=== PATIENT | female | born 1960 | race Two or more races ===

== ENCOUNTER 2020-02-15 13:57 | Inpatient (IN) | payer BC, OTHER ==
[~2020-02-15] VITALS: Ht 162.6 cm; Wt 97.3 kg
[2020-02-15 15:52] LABS: Basophils # (auto) 0.1 10 ^3/uL (0-0.2); Eosinophils # (auto) 0.1 10 ^3/uL (0-0.8); Eosinophils % (auto) 1.4 % (0.0-7.0); Hematocrit 44.5 % (36.0-46.0); Hemoglobin 14.5 g/dL (12.2-16.2); Lymphocytes # (auto) 1.1 10 ^3/uL (0.4-5.4); Lymphocytes % (auto) 14.1 % (10.0-50.0); Mean Corpuscular Hemoglobin 30.4 pg (28.0-32.0); Mean Corpuscular Hgb Conc. 32.7 g/dL (32.0-36.0); Mean Corpuscular Volume 92.8 fL (80.0-100.0); Monocytes # (auto) 0.4 10 ^3/uL (0-1.3); Monocytes % (auto) 5.6 % (0.0-12.0); Neutrophils # (auto) 6.2 10 ^3/uL (1.6-8.6); Neutrophils % (auto) 77.9 % (37.0-80.0); Nucleated Red Blood Cells % 0.1 %; Platelet Count (auto) 188 10^3/uL (140-450); Red Blood Cells 4.79 10^6/uL (4.0-5.20); Red Cell Distribution Width 14.5 % (11.8-14.3)
[2020-02-15 16:09] LABS: Albumin 3.8 g/dL (3.4-5.0); Anion Gap 10 (5-15); Blood Urea Nitrogen 24 mg/dL (7-18); Calcium 8.6 mg/dL (8.5-10.1); Carbon Dioxide 22 mmol/L (21-32); Chloride 108 mmol/L (98-107); Glucose 121 mg/dL (74-106); Magnesium 2.5 mg/dL (1.6-2.6); Potassium 3.3 mmol/L (3.5-5.1); Sodium 140 mmol/L (136-145)
[2020-02-15 16:15] LABS: Alanine Aminotransferase 39 U/L (13-56); Alkaline Phosphatase 91 U/L (45-117); Aspartate Aminotransferase 25 U/L (15-37); BUN/Creatinine Ratio 29.3; Bilirubin, Total 0.3 mg/dL (0.2-1.0); GFR African American 91 mL/min; GFR Non-African American 75 mL/min; INR 0.97 (0.9-1.15); Partial Thromboplastin Time 25.6 sec (23.0-31.2); Total Protein 6.8 g/dL (6.4-8.2)
[2020-02-15] MEDS ORDERED: NITROGLYCERIN 0.4 MG SL TAB SL PRN (17:15)
[2020-02-15] MEDS ORDERED: traMADol HCL 50 MG TAB PO PRN (17:15)
[2020-02-15] MEDS ORDERED: PROMETHAZINE HCL 25 MG/ML 1ML IV PRN (17:15)
[2020-02-15] MEDS ORDERED: MORPHINE SULF INJ 2 MG/ML SYRINGE 1ML IV PRN ×2 (17:15)
[2020-02-15] MEDS ORDERED: DEXTROSE (50%) 50ML SYRG IV PRN (17:15)
[2020-02-15] MEDS ORDERED: CLOPIDOGREL BISULFATE 75 MG TAB PO ONE (17:15)
[2020-02-15] MEDS ORDERED: TEMAZEPAM 15 MG CAP PO PRN (17:15)
[2020-02-15] MEDS ORDERED: ASPirin 81 mg TAB PO ONE (17:15)
[2020-02-15] MEDS ORDERED: POTASSIUM CHL 20 Meq TABLET PO ONE (17:15)
[2020-02-15] MEDS: SODIUM CHLORIDE 0.9% 1,000 ML IV SCH (18:09)
[2020-02-15] MEDS: ENOXAPARIN SOD 40 MG/0.4 ML SYRINGE SC SCH (19:10)
[2020-02-15] MEDS: ATORVASTATIN 20 MG TAB PO SCH (19:11)
[2020-02-15 20:00] VITALS: BP 102/59
[2020-02-15 20:02] VITALS: BP 102/59
[2020-02-15] MEDS: FAMOTIDINE 20 MG TAB PO SCH (21:24)
[2020-02-15] MEDS: METOPROLOL TARTRATE 25 MG TAB PO SCH ×2 (21:25→21:26)
[2020-02-15] MEDS: ACCU-CHEK COMFORT CURVE STRIP VI SCH (21:25)
[2020-02-15 23:34] LABS: CRP High Sensitivity 0.28 mg/dL (< 0.3)
[2020-02-16] MEDS ORDERED: ALBUAER3 IN (01:24)
[2020-02-16 05:30] VITALS: BP 91/44
[2020-02-16] MEDS: SODIUM CHLORIDE 0.9% 1,000 ML IV SCH ×2 (05:36→19:55)
[2020-02-16] MEDS: ACCU-CHEK COMFORT CURVE STRIP VI SCH ×4 (06:48→21:58)
[2020-02-16 07:52] LABS: Cholesterol 152 mg/dL (< 200); HDL Cholesterol 67 mg/dL (40-59); LDL Cholesterol 79 mg/dL (< 100); Triglycerides 49 mg/dL (< 150)
[2020-02-16] MEDS: FAMOTIDINE 20 MG TAB PO SCH ×2 (09:04→22:15)
[2020-02-16] MEDS: CLOPIDOGREL BISULFATE 75 MG TAB PO SCH (09:04)
[2020-02-16] MEDS: NITROGLYCERIN 0.2MG/HR TOPICAL PATCH TD SCH (09:05)
[2020-02-16] MEDS: ENOXAPARIN SOD 40 MG/0.4 ML SYRINGE SC SCH (09:05)
[2020-02-16] MEDS: METOPROLOL TARTRATE 25 MG TAB PO SCH ×2 (09:09→22:00)
[2020-02-16] MEDS: ACETAMINOPHEN 500 MG TAB PO PRN (12:57)
[2020-02-16] MEDS ORDERED: methylPREDNISolone SOD SUCC 125 MG/2 ML VL IV ONE (13:15)
[2020-02-16] MEDS: diphenhdrAMINE HCL 50 MG/1 ML VL IV SCH ×2 (13:31→18:19)
[2020-02-16 17:00] VITALS: BP 127/83
[2020-02-16] MEDS: methylPREDNISolone SOD SUCC 40 MG/ML VL IV SCH (18:19)
[2020-02-16 19:28] LABS: Alcohol, Urine < 3.0 mg/dL (0-10); Amphetamine Screen, Urine NEGATIVE (NEGATIVE); Barbiturate Scree,Urine NEGATIVE (NEGATIVE); Benzodiazephine Screen, Urine NEGATIVE (NEGATIVE); Cannabinoid Screen, Urine POSITIVE (NEGATIVE); Cocaine Screen, Urine NEGATIVE (NEGATIVE); Opiate Scree,Urine NEGATIVE (NEGATIVE); Phencyclidine Screen, Urine NEGATIVE (NEGATIVE)
[2020-02-16 22:00] VITALS: BP 119/68
[2020-02-16] MEDS ORDERED: DEXTROSE (50%) 50ML SYRG IV PRN ×2 (22:15→22:30)
[2020-02-16] MEDS: ATORVASTATIN 20 MG TAB PO SCH (22:16)
[2020-02-16] MEDS: InsuLIN REG 1unit/0.01ml Soln (100units/ml) SC SCH (22:35)
[2020-02-16] MEDS ORDERED: LORazepam 0.5 MG TAB PO PRN (22:45)
[2020-02-17] MEDS: methylPREDNISolone SOD SUCC 40 MG/ML VL IV SCH ×5 (00:28→23:41)
[2020-02-17] MEDS: diphenhdrAMINE HCL 50 MG/1 ML VL IV SCH ×5 (00:28→23:41)
[2020-02-17 05:00] VITALS: BP 116/55
[2020-02-17 05:29] LABS: Basophils # (auto) 0 10 ^3/uL (0-0.2); Basophils % (auto) 0.2 % (0.0-2.0); Eosinophils # (auto) 0 10 ^3/uL (0-0.8); Hematocrit 39.9 % (36.0-46.0); Hemoglobin 13.7 g/dL (12.2-16.2); Lymphocytes % (auto) 12.3 % (10.0-50.0); Mean Corpuscular Hemoglobin 31.7 pg (28.0-32.0); Mean Corpuscular Hgb Conc. 34.4 g/dL (32.0-36.0); Mean Corpuscular Volume 92.1 fL (80.0-100.0); Monocytes # (auto) 0.1 10 ^3/uL (0-1.3); Monocytes % (auto) 1.1 % (0.0-12.0); Neutrophils # (auto) 7.1 10 ^3/uL (1.6-8.6); Neutrophils % (auto) 86.4 % (37.0-80.0); Nucleated Red Blood Cells % 0.1 %; Platelet Count (auto) 174 10^3/uL (140-450); Red Blood Cells 4.33 10^6/uL (4.0-5.20); Red Cell Distribution Width 14.3 % (11.8-14.3); White Blood Cell 8.3 10^3/uL (4.4-10.8)
[2020-02-17 05:47] LABS: Anion Gap 5 (5-15); Blood Urea Nitrogen 11 mg/dL (7-18); Calcium 8.5 mg/dL (8.5-10.1); Carbon Dioxide 23 mmol/L (21-32); Chloride 115 mmol/L (98-107); Glucose 137 mg/dL (74-106); Potassium 3.8 mmol/L (3.5-5.1); Sodium 143 mmol/L (136-145)
[2020-02-17 05:51] LABS: BUN/Creatinine Ratio 15.7; GFR African American 109 mL/min; GFR Non-African American 90 mL/min
[2020-02-17] MEDS: ACETAMINOPHEN 500 MG TAB PO PRN (06:05)
[2020-02-17] MEDS: ACCU-CHEK COMFORT CURVE STRIP VI SCH ×4 (06:50→22:00)
[2020-02-17] MEDS: InsuLIN REG 1unit/0.01ml Soln (100units/ml) SC SCH ×4 (06:51→22:00)
[2020-02-17] MEDS ORDERED: InsuLIN REG 1unit/0.01ml Soln (100units/ml) SC SCH ×2 (07:00→22:00)
[2020-02-17] MEDS ORDERED: ADENOSINE 77 MG in GIVE UN-DILUTED 0 ML IV STA (08:17)
[2020-02-17 09:00] VITALS: BP 134/73
[2020-02-17] MEDS: SODIUM CHLORIDE 0.9% 1,000 ML IV SCH ×2 (09:15→17:18)
[2020-02-17] MEDS: METOPROLOL TARTRATE 25 MG TAB PO SCH (09:47)
[2020-02-17 09:56] VITALS: BP 120/64
[2020-02-17] MEDS: ENOXAPARIN SOD 40 MG/0.4 ML SYRINGE SC SCH (10:00)
[2020-02-17] MEDS: NITROGLYCERIN 0.2MG/HR TOPICAL PATCH TD SCH (10:00)
[2020-02-17] MEDS: CLOPIDOGREL BISULFATE 75 MG TAB PO SCH (11:41)
[2020-02-17] MEDS: FAMOTIDINE 20 MG TAB PO SCH ×2 (11:41→22:04)
[2020-02-17 12:33] LABS: Urine Bacteria NONE SEEN /hpf (None Seen); Urine Blood Negative /uL (Negative); Urine Mucus FEW (None Seen); Urine WBC <1 /hpf (0 - 5)
[2020-02-17 13:00] VITALS: BP 111/61
[2020-02-17 17:00] VITALS: BP 107/67
[2020-02-17 22:00] VITALS: BP 126/64
[2020-02-17] MEDS: ATORVASTATIN 20 MG TAB PO SCH (22:04)
[2020-02-18 05:00] VITALS: BP 103/56
[2020-02-18] MEDS: methylPREDNISolone SOD SUCC 40 MG/ML VL IV SCH ×3 (06:18→17:42)
[2020-02-18] MEDS: diphenhdrAMINE HCL 50 MG/1 ML VL IV SCH ×3 (06:18→17:42)
[2020-02-18] MEDS: ACCU-CHEK COMFORT CURVE STRIP VI SCH ×4 (07:00→22:00)
[2020-02-18] MEDS: InsuLIN REG 1unit/0.01ml Soln (100units/ml) SC SCH ×4 (07:00→22:00)
[2020-02-18] MEDS: SODIUM CHLORIDE 0.9% 1,000 ML IV SCH (08:19)
[2020-02-18 09:00] VITALS: BP 117/58
[2020-02-18] MEDS: NITROGLYCERIN 0.2MG/HR TOPICAL PATCH TD SCH (10:00)
[2020-02-18] MEDS: ENOXAPARIN SOD 40 MG/0.4 ML SYRINGE SC SCH (10:00)
[2020-02-18 10:12] LABS: Basophils # (auto) 0 10 ^3/uL (0-0.2); Basophils % (auto) 0.1 % (0.0-2.0); Eosinophils # (auto) 0 10 ^3/uL (0-0.8); Hematocrit 41.6 % (36.0-46.0); Lymphocytes % (auto) 6.1 % (10.0-50.0); Mean Corpuscular Hemoglobin 30.9 pg (28.0-32.0); Mean Corpuscular Hgb Conc. 33.6 g/dL (32.0-36.0); Mean Corpuscular Volume 91.9 fL (80.0-100.0); Monocytes # (auto) 0.6 10 ^3/uL (0-1.3); Neutrophils # (auto) 14.1 10 ^3/uL (1.6-8.6); Neutrophils % (auto) 89.8 % (37.0-80.0); Nucleated Red Blood Cells % 0.1 %; Platelet Count (auto) 201 10^3/uL (140-450); Red Blood Cells 4.52 10^6/uL (4.0-5.20); Red Cell Distribution Width 14.2 % (11.8-14.3); White Blood Cell 15.7 10^3/uL (4.4-10.8)
[2020-02-18] MEDS: LISINOPRIL 10 MG TAB PO SCH (10:25)
[2020-02-18] MEDS: FAMOTIDINE 20 MG TAB PO SCH ×2 (10:25→23:10)
[2020-02-18] MEDS: CLOPIDOGREL BISULFATE 75 MG TAB PO SCH (10:25)
[2020-02-18 10:39] LABS: Calcium 8.5 mg/dL (8.5-10.1); Potassium 3.7 mmol/L (3.5-5.1)
[2020-02-18 10:43] LABS: BUN/Creatinine Ratio 24.7
[2020-02-18] MEDS ORDERED: DOCUSATE SOD 100 MG CAP PO PRN (11:15)
[2020-02-18] MEDS ORDERED: LACTULOSE 20Gm/30ML SOLN PO PRN (12:00)
[2020-02-18 12:46] VITALS: BP 121/54
[2020-02-18 17:00] VITALS: BP 137/72
[2020-02-18] MEDS: ATORVASTATIN 20 MG TAB PO SCH (23:09)
[2020-02-18 23:37] VITALS: BP 104/68
[2020-02-19] MEDS: SODIUM CHLORIDE 0.9% 1,000 ML IV SCH ×2 (01:15→13:50)
[2020-02-19] MEDS: ACETAMINOPHEN 500 MG TAB PO PRN (04:23)
[2020-02-19 05:42] VITALS: BP 124/63
[2020-02-19] MEDS: diphenhdrAMINE HCL 50 MG/1 ML VL IV SCH ×5 (06:00→23:39)
[2020-02-19] MEDS: methylPREDNISolone SOD SUCC 40 MG/ML VL IV SCH ×5 (06:00→23:40)
[2020-02-19 06:51] LABS: Basophils # (auto) 0 10 ^3/uL (0-0.2); Basophils % (auto) 0.1 % (0.0-2.0); Eosinophils # (auto) 0 10 ^3/uL (0-0.8); Hematocrit 38.1 % (36.0-46.0); Lymphocytes # (auto) 0.9 10 ^3/uL (0.4-5.4); Lymphocytes % (auto) 8.2 % (10.0-50.0); Mean Corpuscular Volume 91.3 fL (80.0-100.0); Monocytes # (auto) 0.4 10 ^3/uL (0-1.3); Monocytes % (auto) 3.4 % (0.0-12.0); Neutrophils # (auto) 9.3 10 ^3/uL (1.6-8.6); Neutrophils % (auto) 88.3 % (37.0-80.0); Nucleated Red Blood Cells % 0.1 %; Platelet Count (auto) 181 10^3/uL (140-450); Red Blood Cells 4.17 10^6/uL (4.0-5.20); Red Cell Distribution Width 14.4 % (11.8-14.3); White Blood Cell 10.6 10^3/uL (4.4-10.8)
[2020-02-19] MEDS: InsuLIN REG 1unit/0.01ml Soln (100units/ml) SC SCH ×4 (07:00→22:00)
[2020-02-19 07:06] LABS: INR 1.01 (0.9-1.15); Partial Thromboplastin Time 22.8 sec (23.0-31.2)
[2020-02-19] MEDS: ACCU-CHEK COMFORT CURVE STRIP VI SCH ×4 (07:14→22:00)
[2020-02-19 07:17] LABS: Calcium 8.1 mg/dL (8.5-10.1); Potassium 3.7 mmol/L (3.5-5.1)
[2020-02-19 08:36] VITALS: BP 128/65
[2020-02-19] MEDS: NITROGLYCERIN 0.2MG/HR TOPICAL PATCH TD SCH (10:00)
[2020-02-19] MEDS ORDERED: ANGIOMAX 250 MG VIAL IV ONE (11:14)
[2020-02-19] MEDS ORDERED: VERAPAMIL 2.5MG/ML INJ 2ML VIAL IV ONE (11:15)
[2020-02-19] MEDS ORDERED: HEPARIN SODIUM (PORCINE) 5000 UNITS/ML 1ML VIAL ONE (11:15)
[2020-02-19] MEDS ORDERED: fentaNYL CITRATE 100 MCG/2 ML VL ONE (11:15)
[2020-02-19] MEDS ORDERED: MIDAZOLAM HCL 1MG/1ML-2 ML VIAL ONE (11:15)
[2020-02-19] MEDS ORDERED: SODIUM CHL 0.9% 0 ML ONE (11:15)
[2020-02-19] MEDS ORDERED: IODIXANOL 320MG/ML 100ML BTL IV ONE (11:20)
[2020-02-19] MEDS ORDERED: LIDOCAINE 2%HCL (LOCAL ANESTH.) INJ 20ML MDV ONE (11:20)
[2020-02-19] MEDS: FAMOTIDINE 20 MG TAB PO SCH ×2 (13:00→22:45)
[2020-02-19] MEDS: LISINOPRIL 10 MG TAB PO SCH (13:01)
[2020-02-19] MEDS: CLOPIDOGREL BISULFATE 75 MG TAB PO SCH (13:01)
[2020-02-19 16:49] VITALS: BP 110/50
[2020-02-19 22:02] VITALS: BP 124/69
[2020-02-19] MEDS: ATORVASTATIN 20 MG TAB PO SCH (22:45)
[2020-02-20] MEDS: SODIUM CHLORIDE 0.9% 1,000 ML IV SCH (02:18)
[2020-02-20 05:00] VITALS: BP 125/54
[2020-02-20] MEDS: methylPREDNISolone SOD SUCC 40 MG/ML VL IV SCH ×2 (06:27→12:00)
[2020-02-20] MEDS: diphenhdrAMINE HCL 50 MG/1 ML VL IV SCH ×2 (06:27→12:00)
[2020-02-20] MEDS: InsuLIN REG 1unit/0.01ml Soln (100units/ml) SC SCH ×2 (06:27→11:30)
[2020-02-20] MEDS: ACCU-CHEK COMFORT CURVE STRIP VI SCH ×2 (06:28→11:37)
[2020-02-20] MEDS: ACETAMINOPHEN 500 MG TAB PO PRN (06:35)
[2020-02-20 09:00] VITALS: BP 136/70
[2020-02-20] MEDS: NITROGLYCERIN 0.2MG/HR TOPICAL PATCH TD SCH (09:31)
[2020-02-20] MEDS: LISINOPRIL 10 MG TAB PO SCH (09:33)
[2020-02-20] MEDS: CLOPIDOGREL BISULFATE 75 MG TAB PO SCH (09:33)
[2020-02-20] MEDS: FAMOTIDINE 20 MG TAB PO SCH (09:34)
[2020-02-20 13:00] VITALS: BP 103/51
[2020-02-20 14:25] VITALS: BP 103/51
[2020-02-20 17:00] VITALS: BP 145/71
== END 2020-02-20 16:10 | disposition home health service (06) | DRG 287 ==
LOC: EDBD 13:57 → ER 13:57 → TELE 13:58 → TELE-WESTW 20:00
PROVIDERS: ADMIT Internal Medicine; ATTEND Internal Medicine Nephrology
PROC: 4A023N7 Measurement of Cardiac Sampling and Pressure, Left Heart, Percutaneous Approach (ICD-10-PCS; principal; 2020-02-19)
PROC: B211YZZ Fluoroscopy of Multiple Coronary Arteries using Other Contrast (ICD-10-PCS; 2020-02-19)
PROC: B215YZZ Fluoroscopy of Left Heart using Other Contrast (ICD-10-PCS; 2020-02-19)
DX: R07.89 Other chest pain (principal); F41.9 Anxiety disorder, unspecified; T78.49XA Other allergy, initial encounter; M62.838 Other muscle spasm; E87.6 Hypokalemia; M19.90 Unspecified osteoarthritis, unspecified site; R73.9 Hyperglycemia, unspecified; J45.909 Unspecified asthma, uncomplicated; E66.9 Obesity, unspecified; G89.29 Other chronic pain; M54.9 Dorsalgia, unspecified; X58.XXXA Exposure to other specified factors, initial encounter; R00.1 Bradycardia, unspecified; F17.210 Nicotine dependence, cigarettes, uncomplicated; F12.90 Cannabis use, unspecified, uncomplicated; H53.8 Other visual disturbances; Z79.02 Long term (current) use of antithrombotics/antiplatelets; Z80.3 Family history of malignant neoplasm of breast; Z68.34 Body mass index [BMI] 34.0-34.9, adult; Z83.3 Family history of diabetes mellitus; Z82.49 Family history of ischemic heart disease and other diseases of the circulatory system; Z88.6 Allergy status to analgesic agent; Z88.0 Allergy status to penicillin
CPT/HCPCS: 36415; 70551; 71045; 78452; 80048; 80053; 80061; 80307; 81001; 82550; 82962; 83036; 83735; 83880; 84443; 84484; 85025; 85379; 85610; 85652; 85730; 86141; 93005; 93017; 93306; 93458; 93886; 95819; 99152; G0378; J0153; J1815; J2250; Q9967